=== PATIENT | female | born 1955 | race African-American/Black ===

== ENCOUNTER 2018-12-10 20:52 | Observation (INO) | payer BC ==
[~2018-12-10] VITALS: Ht 160 cm; Wt 68.0 kg
[2018-12-10 21:59] LABS: BASOPHILS ABSOLUTE AUTO 0.04 K/mm3 (0.00-0.23); BASOPHILS PERCENT AUTO 0 % (0-2); EOSINOPHILS PERCENT AUTO 1 % (0-6); Hematocrit 38.9 % (33.0-51.0); Hemoglobin 13.7 g/dL (11.5-16.0); IMMATURE GRAN ABSOLUTE AUTO 0.03 K/mm3 (0.00-0.10); IMMATURE GRAN PERCENT AUTO 0 % (0-1); LYMPHOCYTES ABSOLUTE AUTO 3.01 K/mm3 (0.84-5.20); LYMPHOCYTES PERCENT AUTO 30 % (21-46); MONOCYTES ABSOLUTE AUTO 0.73 K/mm3 (0.16-1.47); MONOCYTES PERCENT AUTO 7 % (4-13); Mean Corpuscular HGB 28.6 pg (26.0-34.0); Mean Corpuscular HGB Conc 35.2 g/dL (31.5-36.5); Mean Corpuscular Volume 81 fL (80-100); Mean Platelet Volume 11.3 fL (9.1-12.4); NEUTROPHILS PERCENT AUTO 61 % (41-73); Platelet Count 258 K/mm3 (150-400); RDW Coefficient Variation 12.4 % (11.7-14.2); RDW Standard Deviation 36.8 fL (35.1-46.3); Red Blood Cell Count 4.79 M/mm3 (3.80-5.20); White Blood Cell Count 10.01 K/mm3 (4.00-11.30)
[2018-12-10 22:19] LABS: Alanine Aminotransfer (ALT/SGP 27 U/L (12-78); Alk Phos 57 U/L (50-136); Anion Gap 10 mmol/L (6-16); Aspartate Aminotrans (AST/SGOT 25 U/L (12-37); Bilirubin, Total 0.3 mg/dL (0.1-1.0); Blood Urea Nitrogen 7 mg/dL (8-24); Bun/Creatinine Ratio 9.3 (12.0-20.0); CO2, Blood 25 mmol/L (21-32); Chloride, Blood 102 mmol/L (98-108); Creatinine, Blood 0.75 mg/dL (0.40-1.00); Globulin, Blood 3.9 g/dL (2.2-4.0); Glomerular Filtration Rate >60 (60-); Glucose, Blood 101 mg/dL (70-99); Potassium, Blood 2.8 mmol/L (3.5-5.5); Sodium, Blood 137 mmol/L (136-145); Total Protein, Blood 7.9 g/dL (6.4-8.2)
[2018-12-11 00:58] LABS: Source, Urine Clean Catch
[2018-12-11] MEDS ORDERED: SIMVASTATIN PO (00:58)
[2018-12-11] MEDS ORDERED: TRIA50 PO (00:59)
[2018-12-11] MEDS ORDERED: PREMARIN PO (00:59)
[2018-12-11 01:00] LABS: Appearance, Urine Clear (Clear); Bilirubin, Urine Neg (Neg); Blood, Urine Neg (Neg); Color, Urine Yellow (P-Yellow); Glucose Qualitative, Urine Neg (Neg); Ketones, Urine 3+ (Neg); Leukocyte Esterase, Urine 2+ (Neg); Nitrite, Urine Neg (Neg); Protein, Urine Neg (Neg); Urobilinogen, Urine NORM (Normal)
[2018-12-11 01:23] LABS: Amorphous Light ({null, 0-Heavy}); Bacteria Many /hpf; Mucus Light ({null, 0-Heavy}); Red Blood Cells, Urine Not Seen /hpf (0-2); Squamous Epithelial Cells Many /hpf (Few)
--- NOTE | 2018-12-11 05:11 | NUR ---
SHIFT SUMMARY PT NEW ADMIT THIS AM. AAOX4/NPO. DISCOMFORT MINIMIZED WITH 4MG IV MORPHINE. NO NAUSEA/EMESIS SINCE ADMISSION TO FLOOR. PT ORIENTED TO ROOM + CALL LIGHT USE. ASSISTED TO RESTROOM, SBA. IVF PER ORDERS. ABD SOFT WITH SMALL SOFT UMBILICAL HERNIA NOTED + BTX4, PT REPORTING DECREASED IN FIRMNESS SINCE ADMISSION. QUESTIONS ANSWERED REGARDING TX. PT RESTING AT THIS TIME WITH EYES CLOSED, NADN, CALL LIGHT IN REACH.
--- NOTE | 2018-12-11 09:30 | NUR ---
PT A/O. PT REPORTS NOT HAVING ANY PAIN. REPORTS GETTING UP IND. PT REPORTS VOIDING. PT REPORTS "NOT SURE IF PASSING GAS BUT I'LL PAY CLOSER ATTENTION TO THAT". PT DENIES OTHER NEED AT THIS TIME.
--- NOTE | 2018-12-11 10:10 | NUR ---
PT REFUSING PART OF ASSESSMENT. PT IRRITABLE ABOUT NOT KNOWING WHEN DR WILL BE HERE TO SEE PT, DAYSURGERY STAFF HERE RECENTLY TO SEE PT WHO REPORTED WILL CALL DR BERMEO FOR HER. DISCUSSED WITH PT EARLIER THAT TIMES ARE VARIABLE TO WHEN THE DR WILL BE HERE TO SEE PT.
--- NOTE | 2018-12-11 10:21 | NUR ---
DAYSURGERY STAFF TALKING WITH PT.
--- NOTE | 2018-12-11 10:42 | NUR ---
PT EXPRESSED FRUSTRATION THAT DR BERMEO HAS NOT BEEN IN TO DO "A FULL ASSESSMENT AND ALLOW ME TO MAKE AN EDUCATED DECISION ON IF I WANT SURGERY OR NOT" PT STATES THAT SHE WISHES TO SPEAK WITH PT ADVOCATE- PATIENT ADVOCATE IS UNAVAILABLE NURSING APPEALS MANAGER NOTIFIED. PT ALSO STATES "YOU WILL NEED TO GET MY PAPERWORK TOGETHER TO DISCHARGE ME AFTER I SPEAK WITH APPEALS MANAGER" AMA PAPER WORK FILLED OUT. NURSING APPEALS MANAGER IN ROOM AT [id number]
--- NOTE | 2018-12-11 10:49 | NUR ---
NURSING VALUATION MANAGER IN TALKING WITH PT.
--- NOTE | 2018-12-11 10:55 | NUR ---
DR BERMEO HERE TO SEE PT.
--- NOTE | 2018-12-11 13:06 | NUR ---
DISCHARGE PT DISCHARGED HOME AT APROX 1220. PT GIVEN WRITTEN AND VERBAL DISCHARGE INSTRUCTIONS AND VERBALIZED UNDERSTANDING OF THESE INSTRUCTIONS. IV REMOVED, TOLERATED WELL. PT DECLINED WHEELCHAIR TO CAR-INDEPENDENTLY AMBULATED.
== END 2018-12-11 12:43 | disposition home or self-care (01) ==
LOC: ER 20:52 → SURS 20:53
PROVIDERS: Emergency Medicine; ADMIT Surgery
DX: K42.9 Umbilical hernia without obstruction or gangrene (principal)
CPT/HCPCS: 36415; 74177; 80053; 81001; 83690; 85025; 87086; 96361; 96365; 96375; 96376; 99285-25; J2270; J2405; J2543; J7030; Q9967